=== PATIENT | female | born 1995 | race Hispanic/Latino ===

== ENCOUNTER 2020-01-05 13:54 | Outpatient (CLI) | payer OTHER ==
--- NOTE | 2020-01-05 15:36 | ULT ---
OB ULTRASOUND: HISTORY: anatomy. FINDINGS: A single live intrauterine gestation is seen with measurements corresponding to an estimated gestatio nal age of 21 weeks 5 days and RONALD at 05/12/2020. The estimated weight measures 4.7 gm or 1 po und (25% by Hadlock criteria). measurements are as follows: BPD 5.13 cm, 21 weeks 4 days HC 19.09 cm, 21 weeks 3 days AC 17.65 cm, 22 weeks 4 days FL 3.45 cm, 21 weeks 0 days heart rate measures 153 b.p.m. The placenta is posterior fundal without evidence of placenta p revia. ORLY measure 13.1 cm. Cervical length measures 4.2 cm. A 3-vessel cord, cord insertion, kidneys, bladder, stomach, 4 chamber heart, lateral ventricles , cerebellum, spine, lips/nose, upper and lower extremities are visualized. No definite abnorm alities are seen. IMPRESSION: Single live intrauterine gestation of 21 weeks 5 days estimated gestational age and estimated date of delivery at 05/12/2020. POS: NASRIN
== END 2020-01-05 13:55 | disposition home or self-care (01) ==
LOC: BICULT 13:54
PROVIDERS: ATTEND Family Medicine
DX: Z34.02 Encounter for supervision of normal first pregnancy, second trimester (principal); Z3A.21 21 weeks gestation of pregnancy
CPT/HCPCS: 76805

== ENCOUNTER 2020-04-17 00:31 | Day surgery (SDC) | payer MEDICAID ==
[2020-04-17 00:55] VITALS: BP 121/84; TEMP 98.4; BMI 19.1
[2020-04-17] MEDS ORDERED: hydrALAZINE 20 MG/ML VIAL SLOW IVP PRN (01:32)
--- NOTE | 2020-04-17 01:35 | PDOC.LDHP ---
Labor and Delivery H&P Chief complaint: contractions HPI: 24yo G1 presents for evaluation of contractions that began at 10pm last night. She states they are uncomfortable and are coming about every 5 minutes. She is currently on amoxicillin for an infection, she does not know of what nature. She had a small amount of blood tinged discharge this morning when she wiped. She denies increased discharge, loss of fluid, decreased movement, nausea, vomiting, chest pain, shortness of breath. Current gestational age (weeks): 36 (6) Due date: 05/09/20 Dating criteria: last menstrual period Grav: 1 Para: 0 Current complications: none Abnormal US findings: No Past Medical History: Denies Current medications: pre- vitamins Previous surgical history: none Allergies/Adverse Reactions: Allergies Allergy/AdvReac Type Severity Reaction Status Date / Time No Known Allergies Allergy Unverified 04/17/20 00:57 Social history: none - Physical Exam Vital signs reviewed and normal: yes General: NAD, resting Heart: RRR Lungs: CTAB Abdomen: gravid Extremeties: no edema FHT: category 1 [place] contractions every: 5-10min - Vaginal Exam cm dilated: 1 Effacement: 25% Station: -3 - OB Labs Blood type: O RH: positive Antibody Screen: negative HIV: negative RPR: negative HEPSAg: negative 1 hour GCT: negative GBS: unknown Rubella: immune - Assessment sIUP @ 36.6 weeks gestation contractions - Plan -: Discussed options of monitoring and rechecking or sending home during latent labor and the patient elected to return home. Her exam was 08/15/3 and the NST was reactive. Reassured patient of contractions and gave labor precautions. Discussed that her infection may be contributing to the pain and the contractions. Recommend f/u with [facility] this week. Nely DONALD PGY2
--- NOTE | 2020-04-17 01:37 | PDOC.BPN ---
- Brief Progress Note Encounter Date: 04/17/20 Encounter Time: 01:30 I have seen the patient at bedside. Latent labor at late gestation. CX only 1cm. No VB or LOF. Vitals WNL. NST reactive. OK for DC as no evidence acute maternal- compromise. Please see DR Smith full report
== END 2020-04-17 01:40 | disposition home or self-care (01) ==
LOC: L&D/OP 00:31
PROVIDERS: ATTEND Family Medicine
DX: O47.03 False labor before 37 completed weeks of gestation, third trimester (principal); O98.913 Unspecified maternal infectious and parasitic disease complicating pregnancy, third trimester; Z3A.36 36 weeks gestation of pregnancy; Z79.2 Long term (current) use of antibiotics
CPT/HCPCS: 99283

== ENCOUNTER 2020-05-05 12:00 | Outpatient (CLI) | payer MEDICAID, OTHER ==
[2020-05-05 18:59] LABS: SARS-CoV-2 MS2 Positive; SARS-CoV-2 N Gene Negative; SARS-CoV-2 S Gene Negative; SARS-CoV-2 by NAA Not Detected (NotDetected); SARS-CoV-2 orf1ab Negative
== END 2020-05-05 12:01 | disposition home or self-care (01) ==
LOC: LABBT 12:00
PROVIDERS: ATTEND Family Medicine
DX: Z20.828 Contact with and (suspected) exposure to other viral communicable diseases (principal)
CPT/HCPCS: 87635; U0003

== ENCOUNTER 2020-05-08 19:15 | Inpatient (IN) | payer MEDICAID, SELFPAY ==
[~2020-05-08 19:15] MED LIST: EPINEPHrine 1 MG/ML AMP ONE; Oxytocin 10 UNITS/ML VIAL ONE; PROPOFOL 200 MG/20 ML VIAL ONE; Succinylcholine Chloride 20 MG/ML 10 ml SYRINGE FS ONE
[2020-05-08] MEDS: Lactated Ringer's 1,000 ML IV SCH (22:10)
[2020-05-08] MEDS ORDERED: NS w/ Oxytocin 10 units 500 ML IV SCH ×2 (22:19)
[2020-05-08] MEDS ORDERED: Carboprost 250 MCG/ML AMP IM PRN (22:19)
[2020-05-08] MEDS ORDERED: Diphenoxylate HCl/Atropine Tablet PO PRN (22:19)
[2020-05-08] MEDS ORDERED: HYDROcodone/Acetaminophen 5/325 mg Tablet PO PRN (22:19)
[2020-05-08] MEDS ORDERED: Ibuprofen 800 MG TAB PO PRN (22:19)
[2020-05-08] MEDS ORDERED: NS / Oxytocin 40 units/1000ml 1,000 ML IV PRN (22:19)
[2020-05-08] MEDS ORDERED: Methylergonovine 0.2 MG/ML VIAL IM PRN (22:19)
[2020-05-08] MEDS ORDERED: Butorphanol Tartrate 1 MG/ML VIAL SLOW IVP PRN (22:19)
[2020-05-08] MEDS ORDERED: Promethazine HCl 25 MG/ML VIAL IM PRN (22:19)
[2020-05-08] MEDS ORDERED: Misoprostol 200 MCG TAB PR PRN (22:19)
[2020-05-08] MEDS ORDERED: Lidocaine 1% (PF) 30 ML VIAL SC PRN (22:19)
[2020-05-08] MEDS ORDERED: Ondansetron PF 4 MG/2 ML Vial IVP PRN (22:19)
[2020-05-08] MEDS ORDERED: hydrALAZINE 20 MG/ML VIAL SLOW IVP PRN (22:19)
[2020-05-08] MEDS: Misoprostol 100 MCG TAB VAG SCH (23:18)
[2020-05-08 23:52] VITALS: BMI 22.5
[2020-05-08 23:53] LABS: Hemoglobin 10.1 g/dL (12.0-16.0); Mean Corpuscular HGB CONC 33.7 g/dL (32.0-36.0); Mean Corpuscular Hemoglobin 28.2 pg (27.0-31.0); Mean Corpuscular Volume 83.7 fL (78.0-98.0); Mean Platelet Volume 8.4 fL (7.4-10.4); Platelet Count 373 thou/uL (130-400); RBC Distribution Width 14.1 % (11.5-14.5); White Blood Cell (WBC) Count 7.8 thou/uL (4.8-10.8)
[2020-05-09 00:32] LABS: Syphilis Antibody Nonreactive (Nonreactive); Syphilis Antibody Index 0.03 S/CO (<1.00 Non-Reactive)
[2020-05-09 00:33] LABS: HBSAg Index 0.17 S/CO (0-0.99); Hep B Surf Ag Non-Reactive S/CO (NonReactive)
[2020-05-09] MEDS ORDERED: Fentanyl 4 mcg/Bup 0.1% Cadd 100 ML ONE (01:00)
[2020-05-09] MEDS ORDERED: Acetaminophen 325 MG TAB PO PRN (01:38)
[2020-05-09] MEDS ORDERED: diphenhydrAMINE 50 MG/ML VIAL IVP PRN ×2 (01:38→04:14)
[2020-05-09] MEDS ORDERED: Promethazine HCl 25 MG/ML VIAL IM PRN ×3 (01:38→07:04)
[2020-05-09] MEDS ORDERED: Lactated Ringer's 500 ML IV PRN (01:38)
[2020-05-09] MEDS ORDERED: EPHEDRINE 25 MG/5 ML SYRINGE SLOW IVP PRN (01:38)
[2020-05-09] MEDS ORDERED: Naloxone HCl 0.4 mg/ml Vial IVP PRN ×2 (01:38)
[2020-05-09] MEDS ORDERED: Ondansetron PF 4 MG/2 ML Vial IVP PRN ×3 (01:38→07:04)
[2020-05-09] MEDS ORDERED: Communication Order-Pharmacy FS SCH ×2 (01:45→04:15)
[2020-05-09] MEDS ORDERED: Fentanyl 4 mcg/Bupivacaine 0.1% Cassette 100 ML EPIDURAL SCH (01:45)
[2020-05-09] MEDS: Lactated Ringer's 1,000 ML IV SCH ×2 (01:50→02:52)
[2020-05-09] MEDS ORDERED: Terbutaline Sulfate 1 MG/ML VIAL ONE (02:50)
[2020-05-09] MEDS ORDERED: Azithromycin 500 MG VIAL ONE (03:24)
[2020-05-09] MEDS ORDERED: Lidocaine 2% 10 ML INJ ONE (03:32)
[2020-05-09] MEDS ORDERED: Bupivacaine 0.5% 10 ML VIAL ONE (03:33)
[2020-05-09] MEDS ORDERED: PHENYLEPHRINE-NS 100 MCG/ML 10 ML SYRINGE ONE (03:44)
[2020-05-09] MEDS ORDERED: Ondansetron PF 4 MG/2 ML Vial ONE (03:44)
[2020-05-09] MEDS ORDERED: ePHEDrine 50 MG/ML VIAL ONE (03:44)
[2020-05-09] MEDS ORDERED: Oxytocin 10 UNITS/ML VIAL ONE (03:44)
[2020-05-09] MEDS ORDERED: Fentanyl 100 MCG/2 ML VIAL ONE (03:54)
[2020-05-09] MEDS ORDERED: Midazolam HCl 2 mg/2 ml Vial ONE (04:00)
[2020-05-09] MEDS ORDERED: L&D-Morphine 4 MG/ML VIAL SLOW IVP PRN (04:13)
[2020-05-09] MEDS ORDERED: Ondansetron HCl/PF 4 MG/2 ML Vial IVP PRN (04:13)
[2020-05-09] MEDS ORDERED: Meperidine HCl/PF 25 MG/ML VIAL SLOW IVP PRN (04:13)
[2020-05-09] MEDS ORDERED: Zolpidem Tartrate 5 MG TAB PO PRN (04:14)
[2020-05-09] MEDS ORDERED: diphenhydrAMINE 50 MG/ML VIAL IM PRN (04:14)
[2020-05-09] MEDS ORDERED: diphenhydrAMINE 25 MG CAP PO PRN ×2 (04:14→07:04)
[2020-05-09] MEDS ORDERED: fentaNYL Citrate/PF 2,000 MCG in Sodium Chloride 0.9% 60 ML IV PRN (04:14)
[2020-05-09] MEDS ORDERED: Naloxone HCl 0.4 mg/ml Vial IV PRN (04:14)
[2020-05-09] MEDS ORDERED: Ketorolac Tromethamine 30 MG/ML VIAL IVP SCH (04:15)
[2020-05-09 04:26] LABS: Actual Bicarbonate (HCO3a) 20.9 mEq/L (22-28); Base Excess (BEa) -6.7 mEq/L (-2.0 to +3.0)
[2020-05-09 04:29] LABS: Actual Bicarbonate (HCO3v) 22 mEq/L (22-28); Base Excess -5.1 mEq/L (-2.0 to +3.0); pH (Cord, venous) 7.29 (7.32-7.43)
--- NOTE | 2020-05-09 04:43 | PDOC.OPDEL ---
OB Operative/Delivery Note Delivery Dr/Surgeon: León Medeiros MD Assist: Maki Hampton DO Pre-Delivery Diagnosis: non-reassuring tracing Procedure/Post Delivery Dx: primary low transverse CS Weeks gestation: 40 Anesthesia: other (general) - Findings A Sex: male Weight: 6 lb 1.885 oz - 1 min: 5 - 5 min: 7 - Additional Findings/Plan Placenta delivered: manual removal findings: low transverse hysterotomy without extension Estimated blood loss: 540 mL Compilations/Other Findings: Date of Procedure: 05/09/2020 Attending Primary Surgeon: León Medeiros MD Parachute [employer] Rigger Surgeon: Maki Hampton DO, PGY-2 Procedure: Primary low transverse caesarean section Preoperative Diagnosis: 1)Term intrauterine 2) NRFHT Postoperative Diagnosis: 1)Term intrauterine , now delivered Anesthesia: general Indications: The patient is a 24 year old G1,P0 female at 40 weeks gestation with NRFHT that did not improve with the usual measures Procedure in Detail: After risks, benefits, and alternatives were explained to the patient, she gave informed consent. Pre-operative antibiotics included Cefazolin 2 gram IV and Azithromycin 500 mg IV. The patient was taken to the operating room and spinal anesthesia was initiated. However patient could still feel sharp pain in the lower quadrants upon testing and so was then converted to general anesthesia. She was placed in the supine position with a left tilt and prepped and draped in usual sterile fashion. A Pfannenstiel incision was made with a scalpel and carried down to the level of the fascia which was sharply nicked. The fascial cut was extended bilaterally with Calle sissors. The inferior and superior edges of the cut fascial edges were elevated with Lu clamps and the underlying rectus muscles were sharply and bluntly dissected free. The recti were divided digitally and retracted manually. The peritoneum was entered bluntly and retracted manually. Bladder blade was placed. A low transverse score was made with the scalpel and the uterus was entered in the midline with the scalpel. Clear fluid was seen. The hysterotomy was extended manually. The was noted to be vertex and was easily delivered by fundal pressure. Nuchal cord x 1. Mouth and nares were bulb suctioned. Cord clamped and cut and grossly normal male infant was handed to waiting nurse. Cord blood was obtained and sent for gases. Placenta was manually extracted, found to be intact with 3 vessel cord and sent for pathology. The uterus was externalized and the endometrium was curetted with a dry lap. The bladder blade was replaced and the uterus was closed with a running locking 1-Monocryl suture followed by 2 figure of 8 0- Vicryl sutures. Following this hemostasis was noted. The abdomen was irrigated with saline and suctioned free of clots. Septa film was then applied to the uterus. The uterus was internalized and the hysterotomy was again noted to be hemostatic. The peritoneum was closed with 3-0 Vicryl suture in running non- locking fashion. The fascia was closed with a running non-locking PDS suture. The subcutaneous tissue was irrigated and there were no bleeders. The subcutaneous tissue was then closed with 3 simple interrupted 3-0 Vicryl suture. The skin was approximated with hunter and a pressure dressing was placed. All counts were correct. The patient tolerated the procedure well and was taken to the recovery room in stable condition. Quantitative Blood Loss: 540 ml Complications: None Specimens: Cord blood sent to lab for blood type and cord gases Findings: Grossly normal male infant with Apgars of 5 and 7. Grossly normal placenta with 3 vessel cord sent for pathology. Drains: Granda to gravity draining clear urine Post delivery plan: routine recovery
[2020-05-09] MEDS ORDERED: Ketorolac Tromethamine 30 MG/ML VIAL ONE (05:29)
[2020-05-09] MEDS: Ketorolac Tromethamine 30 MG/ML VIAL IVP SCH ×4 (05:31→23:47)
[2020-05-09] MEDS ORDERED: NS / Oxytocin 40 units/1000ml 1,000 ML IV SCH (07:04)
[2020-05-09] MEDS ORDERED: hydrALAZINE 20 MG/ML VIAL SLOW IVP PRN (07:04)
[2020-05-09] MEDS ORDERED: Simethicone Chewable 80 MG TAB PO PRN (07:04)
[2020-05-09] MEDS ORDERED: Bisacodyl 10 MG SUPP PR PRN (07:04)
[2020-05-09] MEDS ORDERED: Adacel (T-DAP) 0.5 ML SYRINGE IM ONE (07:04)
[2020-05-09] MEDS ORDERED: Lanolin Ointment 7 GM TUBE TOP PRN (07:04)
[2020-05-09] MEDS ORDERED: HYDROcodone/Acetaminophen 5/325 mg Tablet PO PRN (07:04)
[2020-05-09] MEDS: Docusate Calcium (SURFAK) 240 MG CAP PO SCH ×2 (10:53→21:41)
[2020-05-09] MEDS: Prenatal Vitamin 1 TAB PO SCH (10:53)
[2020-05-09] MEDS: Ferrous Sulfate 325 MG TAB PO SCH ×2 (10:54→17:13)
[2020-05-09] MEDS: HYDROcodone/Acetaminophen 5/325 mg Tablet PO PRN (15:17)
[2020-05-09] MEDS ORDERED: Sodium Chloride 0.9% 10 ML ONE ×2 (17:28→23:44)
[2020-05-09] MEDS: Misoprostol 100 MCG TAB VAG SCH (19:47)
[2020-05-10] MEDS: Ibuprofen 800 MG TAB PO SCH ×3 (05:02→19:59)
[2020-05-10] MEDS: HYDROcodone/Acetaminophen 5/325 mg Tablet PO PRN ×4 (05:19→17:43)
[2020-05-10 06:23] LABS: Hemoglobin 8.7 g/dL (12.0-16.0); Mean Corpuscular HGB CONC 32.4 g/dL (32.0-36.0); Mean Corpuscular Hemoglobin 27.2 pg (27.0-31.0); Mean Corpuscular Volume 83.8 fL (78.0-98.0); Mean Platelet Volume 7.5 fL (7.4-10.4); Platelet Count 345 thou/uL (130-400); RBC Distribution Width 14.6 % (11.5-14.5); White Blood Cell (WBC) Count 14.8 thou/uL (4.8-10.8)
[2020-05-10] MEDS: Ferrous Sulfate 325 MG TAB PO SCH ×2 (09:19→17:44)
[2020-05-10] MEDS: Docusate Calcium (SURFAK) 240 MG CAP PO SCH ×2 (09:19→19:59)
[2020-05-10] MEDS: Prenatal Vitamin 1 TAB PO SCH (09:19)
[2020-05-11] MEDS: Ibuprofen 800 MG TAB PO SCH ×2 (05:06→13:50)
[2020-05-11 08:20] VITALS: BP 108/73; TEMP 98.5
[2020-05-11] MEDS: Prenatal Vitamin 1 TAB PO SCH (08:22)
[2020-05-11] MEDS: Docusate Calcium (SURFAK) 240 MG CAP PO SCH (08:23)
[2020-05-11] MEDS: Ferrous Sulfate 325 MG TAB PO SCH (08:23)
== END 2020-05-11 16:00 | disposition home or self-care (01) | DRG 788 ==
LOC: L&D 20:58 → 3SW 05-09 07:41
PROVIDERS: ADMIT Family Medicine; ATTEND Family Medicine
PROC: 10D00Z1 Extraction of Products of Conception, Low, Open Approach (ICD-10-PCS; principal; 2020-05-09)
DX: O48.0 Post-term pregnancy (principal); O99.824 Streptococcus B carrier state complicating childbirth; O76 Abnormality in fetal heart rate and rhythm complicating labor and delivery; Z3A.40 40 weeks gestation of pregnancy; Z37.0 Single live birth
CPT/HCPCS: 36415; 51702; 82805; 85027; 86780; 86850; 86900; 86901; 87340; 88307; 99285; J0171; J0456; J0690; J1885; J2250; J2405; J2704; J3010; J3105; J3490